=== PATIENT | male | born 1990 | race Two or more races ===

== ENCOUNTER 2020-02-09 04:52 | Emergency (ER) | payer BC, OTHER ==
[~2020-02-09] VITALS: Ht 175.3 cm; Wt 92.7 kg
[2020-02-09] MEDS ORDERED: LIDOCAINE-MPF 1%, 5ML ONE (05:18)
[2020-02-09] MEDS ORDERED: DIPH,PERTUSS(ACELL),TET VAC/PF 0.5 ML IM-VACC ONE ×2 (05:19→05:30)
[2020-02-09] MEDS ORDERED: LIDOCAINE-MPF 1%, 5ML INFIL ONE (05:30)
[2020-02-09 06:42] VITALS: BP 137/71
== END 2020-02-09 06:44 | disposition home or self-care (01) ==
LOC: ED 06:28
DX: S01.511A Laceration without foreign body of lip, initial encounter (principal); S10.93XA Contusion of unspecified part of neck, initial encounter; S09.90XA Unspecified injury of head, initial encounter; Y08.89XA Assault by other specified means, initial encounter; Y93.89 Activity, other specified; Y92.488 Other paved roadways as the place of occurrence of the external cause; Y99.8 Other external cause status
CPT/HCPCS: 12051; 70450; 72125; 90471; 90715; 99285